=== PATIENT | male | born 1935 | race Caucasian/White ===

== ENCOUNTER 2018-10-31 17:03 | Emergency (ER) | payer MEDICARE, MEDICAID ==
[2018-10-31 17:19] VITALS: BP 145/65
--- NOTE | 2018-10-31 17:45 | EDM.PDOC ---
ED HPI GENERAL MEDICAL PROBLEM - General Chief Complaint: Lower Extremity Injury/Pain Stated Complaint: RIGHT KNEE PAIN Time Seen by Provider: 10/31/18 17:30 Source of Information: Reports: Patient History Limitations: Reports: No Limitations - History of Present Illness INITIAL COMMENTS - FREE TEXT/NARRATIVE: 83-year-old gentleman presents to emergency room with complaints of right knee pain swelling and lateral right hip pain. He was working on the [employer] up and moved some iron when he fell injuring his right knee. Discontinue to have pain swelling difficulty with ambulation over the last 10 days. Complains of pain swelling of the right knee as well as hip pain laterally. He denies groin pain. He has been weightbearing. He has no other complaints currently at this time. He 's not been taking any medication for his pain. Onset Date: 10/22/18 Duration: Day(s):, Chronic Location: Reports: Lower Extremity, Right Quality: Reports: Sharp Severity: Moderate Improves with: Reports: None Worsens with: Reports: None Context: Reports: Trauma (fall) Associated Symptoms: Reports: No Other Symptoms Right Knee Pain Score (Numeric/FACES): 7 - Related Data Allergies Allergy/AdvReac Type Severity Reaction Status Date / Time No Known Allergies Allergy Verified 10/31/18 17:19 Home Meds: Home Meds Fluticasone/Salmeterol [Advair 250-50] 1 puff INH BID 08/17/13 [History] Losartan [Cozaar] 100 mg PO DAILY 08/17/13 [History] atorvaSTATin [Lipitor] 40 mg PO BEDTIME 08/17/13 [History] Acetaminophen 1,000 mg PO Q6H PRN 10/17/15 [History] Diltiazem HCl [Cardizem Cd] 120 mg PO DAILY 05/31/16 [History] Isosorbide Mononitrate [Isosorbide Mononitrate ER] 60 mg PO DAILY 05/31/16 [ History] Metoprolol Tartrate [Lopressor] 50 mg PO BID 05/31/16 [History] Past Medical History HEENT History: Reports: Hard of Hearing, Impaired Vision Cardiovascular History: Reports: Bypass, High Cholesterol, Hypertension, Stents Respiratory History: Reports: SOB Genitourinary History: Reports: Prostate Disorder Musculoskeletal History: Reports: Other (See Below) Other Musculoskeletal History: 2 back surgeries Neurological History: Reports: Vertigo Hematologic History: Reports: None Oncologic (Cancer) History: Reports: Prostate - Past Surgical History Cardiovascular Surgical History: Reports: Carotid Stents, Coronary Artery Bypass GI Surgical History: Reports: Hernia, Inguinal Musculoskeletal Surgical History: Reports: Knee Replacement, Other (See Below) Oncologic Surgical History: Reports: Other (See Below) Social & Family History - Caffeine Use Caffeine Use: Reports: Coffee, Soda, Tea - Living Situation & Occupation Living situation: Reports: Review of Systems - Review of Systems Review Of Systems: ROS reveals no pertinent complaints other than HPI. ED EXAM, GENERAL - Physical Exam Exam: See Below Exam Limited By: No Limitations General Appearance: Alert, WD/WN, No Apparent Distress Throat/Mouth: Normal Voice Head: Atraumatic Neck: Supple Respiratory/Chest: Lungs Clear Cardiovascular: Regular Rate, Rhythm GI/Abdominal: Soft Back Exam: Normal Inspection, Full Range of Motion Extremities: Joint Swelling (Right knee 1+ effusion), Other (Patient has a 1+ effusion in his right knee. He's able to do us straight leg raise with minimal difficulty. I'm able to flex his knee to about 100 with minimal discomfort. Knee is stable to varus valgus stresses up. Right hip exam shows a negative roll sign he has no pain in his groin with gentle hip range of motion. He has some tenderness over the lateral hip there is no warmth no redness no bruising or ecchymosis about the hip. Has a well-healed incision on the left side of his knee consistent with prior total knee arthroplasty is no pitting edema in either of his lower extremities pulses are 1+. Sensation is intact to light touch) Neurological: Alert, Oriented, No Motor/Sensory Deficits Psychiatric: Normal Affect, Normal Mood Skin Exam: Warm, Dry, Intact, Normal Color, No Rash ED TRAUMA EXTREMITY PROCEDURES - Additional/Other Procedure(s) Other (Free Text) Procedure(s): Intra-articular injection right knee Procedure note: -Right knee was prepped with alcohol as injected with 5 mL 1% Xylocaine and left sides skin and joint. 18-gauge needle was used to aspirate synovial fluid from the right knee. Extremities were exchanged knee was injected with 3 mL of 1 % lidocaine and 80 Kenalog without difficulty. Needle was removed and a Band- Aid was placed at the portal. 40 mL of mild bloody tinged synovial fluid was aspirated from the patient's knee without difficulty. Course - Vital Signs Last Recorded V/S: Last Vital Signs Temp 99.3 F 10/31/18 17:13 Pulse 79 10/31/18 17:13 Resp 16 10/31/18 17:13 BP 145/65 H 10/31/18 17:13 Pulse Ox 92 L 10/31/18 17:13 - Orders/Labs/Meds Meds: Medications Discontinued Medications Generic Name Dose Route Start Last Admin Trade Name Carmen PRN Reason Stop Dose Admin Lidocaine HCl 10 ml 10/31/18 18:12 10/31/18 18:19 Xylocaine 1% INJECT 10/31/18 18:13 10 ml ONETIME ONE Administration Lidocaine HCl Confirm 10/31/18 18:17 10/31/18 18:28 Xylocaine 1% Administered 10/31/18 18:18 Not Given Dose 20 ml .ROUTE .STK-MED ONE Triamcinolone Acetonide 80 mg 10/31/18 18:12 10/31/18 18:18 Kenalog-40 INJECT 10/31/18 18:13 80 mg ONETIME ONE Administration - Radiology Interpretation Free Text/Narrative:: X-rays AP bilateral knees standing, bilateral merchant, bilateral lateral knees X-rays AP pelvis and frog leg right hip Departure - Departure Time of Disposition: 18:30 Disposition: Home, Self-Care 01 Condition: Good Clinical Impression: Knee effusion, right Right knee DJD Qualifiers: Osteoarthritis type: primary Qualified Code(s): M17.11 - Unilateral primary osteoarthritis, right knee Contusion of right hip Qualifiers: Encounter type: initial encounter Qualified Code(s): S70.01XA - Contusion of right hip, initial encounter - Discharge Information Instructions: RICE Therapy for Routine Care of Injuries, [id number], Hip Pain , Osteoarthritis, Knee Injection Forms: ED Department Discharge Additional Instructions: 1. Rest, ice, compression, elevation right knee 2. Ibuprofen 800 mg 3 times a day with food 3. May benefit from using a walker or a cane for a few weeks to help unload the right leg. 4. Follow-up with orthopedics if not significantly better in a couple weeks. - Assessment/Plan Assessment:: 1. Right knee DJD with effusion 2. Right hip contusion Plan: 1. Rest, ice, compression, elevation right knee 2. Ibuprofen 800 mg 3 times a day with food 3. May benefit from using a walker or a cane for a few weeks to help unload the right leg. 4. Follow-up with orthopedics if not significantly better in a couple weeks.
[2018-10-31] MEDS ORDERED: Triamcinolone Acetonide 40 MG/ML 10 ML MDV INJECT ONE (18:12)
[2018-10-31] MEDS ORDERED: Lidocaine 1% 10 ML MDV INJECT ONE (18:12)
--- NOTE | 2018-10-31 18:13 | CR ---
[id number] RAD/RAD Pelvis 1V W 2V Right Hip EXAM: 3 VIEWS RIGHT HIP. INDICATION: RIGHT HIP PAIN. COMPARISON: None. DISCUSSION: No fracture, dislocation or other acute osseous abnormality. Vvzp-sy-exyadfdy degenerative changes of the hips bilaterally. Numerous surgical clips within the pelvis. IMPRESSION: 1. NO ACUTE OSSEOUS ABNORMALITIES. MILD TO MODERATE DEGENERATIVE CHANGES OF THE HIPS BILATERALLY. Jules Balderrama DO 10/31/18 1812 Thank you for allowing us to participate in the care of your patient.
[2018-10-31] MEDS ORDERED: Lidocaine 1% 20 ML MDV ONE (18:17)
--- NOTE | 2018-10-31 18:17 | CR ---
[id number] RAD/RAD Knee Alok Stand W Alok Lat EXAM: 4 VIEWS BILATERAL KNEES. INDICATION: RIGHT KNEE PAIN, STATUS POST FALL. COMPARISON: None. DISCUSSION: No fracture, dislocation or other acute osseous abnormality. 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 No evidence of acute hardware failure or loosening. Advanced tricompartmental degenerative changes of the right knee including narrowing of the joint spaces, osteophyte formation and chondrocalcinosis. Trace right knee joint effusion. IMPRESSION: 1. NO ACUTE OSSEOUS ABNORMALITIES. CHRONIC CHANGES ABOVE. Jules Balderrama DO 10/31/18 1816 Thank you for allowing us to participate in the care of your patient.
== END 2018-10-31 18:42 | disposition home or self-care (01) ==
LOC: KA.ED 17:03
DX: S70.01XA Contusion of right hip, initial encounter (principal); M25.461 Effusion, right knee; M17.11 Unilateral primary osteoarthritis, right knee; I10 Essential (primary) hypertension; E78.00 Pure hypercholesterolemia, unspecified; Z79.899 Other long term (current) drug therapy; W19.XXXA Unspecified fall, initial encounter
CPT/HCPCS: 10004; 20610; 73562-50; 99283; 99283-25; J2001; J3301

== ENCOUNTER 2020-01-09 22:01 | Emergency (ER) | payer MEDICARE, MEDICAID ==
--- NOTE | 2020-01-09 22:22 | EDM.PDOC ---
ED HPI GENERAL MEDICAL PROBLEM - General Chief Complaint: General Stated Complaint: laceration to left elbow Time Seen by Provider: 01/09/20 22:22 Source of Information: Reports: Patient History Limitations: Reports: No Limitations - History of Present Illness INITIAL COMMENTS - FREE TEXT/NARRATIVE: Last night during heavy rain, in a hurry to get into his apartment, slipped and struck his elbow on the concrete. Denies any significant pain and realized he had a laceration, covering it with a dressing. Today when changing the dressing a family member informed him that it was a large laceration that needed to have medical attention. Inder said it was doing okay and denied treatment initially. Then his sister evaluated and got her son to drive him to the hospital emergency department to have this repaired. He stated it bled fairly well at the beginning but was able to control it by holding pressure. He cleaned it up appropriately and has kept it covered for the most part since its occurrence roughly 24 hours prior to arrival. He denies any pain, crepitus, or any interference with full flexion and extension of the elbow. Denies anything radiating to the forearm. [place] that it was not necessary to be evaluated, but was convinced, or forced, to come in for treatment. Onset Date: 01/08/20 Onset Time: 22:00 Duration: Hour(s):, Getting Worse Location: Reports: Upper Extremity, Left Quality: Reports: Pressure Severity: Moderate Improves with: Reports: None Worsens with: Reports: Movement Treatments CATTLE BRANDER: Reports: Dressing(s) - Related Data Allergies Allergy/AdvReac Type Severity Reaction Status Date / Time No Known Allergies Allergy Verified 10/31/18 17:19 Home Meds: Home Meds Losartan [Cozaar] 100 mg PO DAILY 08/17/13 [History] atorvaSTATin [Lipitor] 40 mg PO BEDTIME 08/17/13 [History] Isosorbide Mononitrate [Isosorbide Mononitrate ER] 60 mg PO DAILY 05/31/16 [History] Metoprolol Tartrate [Lopressor] 50 mg PO BID 05/31/16 [History] dilTIAZem HCL [Cardizem Cd] 120 mg PO DAILY 05/31/16 [History] Albuterol Sulfate [Proair Respiclick] 2 puff IH Q4HR PRN 11/18/18 [History] Albuterol [Proventil Neb Soln] 2.5 mg INH QID PRN 11/18/18 [History] Fluticasone Propion/Salmeterol [Advair 250-50 Diskus] 1 each IH BID 11/18/18 [History] Nitroglycerin [Nitrostat] 0.4 mg SL ASDIRECTED PRN 11/18/18 [History] Warfarin [Coumadin] 5 mg PO ASDIRECTED 11/18/18 [History] cephALEXin [Cephalexin] 500 mg PO TID 6 Days #18 tablet 01/09/20 [Rx] Past Medical History HEENT History: Reports: Hard of Hearing, Impaired Vision Cardiovascular History: Reports: Bypass, High Cholesterol, Hypertension, Stents Respiratory History: Reports: SOB Genitourinary History: Reports: Prostate Disorder Musculoskeletal History: Reports: Other (See Below) Other Musculoskeletal History: 2 back surgeries Neurological History: Reports: Vertigo Hematologic History: Reports: None Oncologic (Cancer) History: Reports: Prostate - Past Surgical History Cardiovascular Surgical History: Reports: Carotid Stents, Coronary Artery Bypass GI Surgical History: Reports: Hernia, Inguinal Musculoskeletal Surgical History: Reports: Knee Replacement, Other (See Below) Oncologic Surgical History: Reports: Other (See Below) Social & Family History - Family History Family Medical History: Noncontributory - Caffeine Use Caffeine Use: Reports: Coffee, Soda, Tea - Living Situation & Occupation Living situation: Reports: ED ROS GENERAL - Review of Systems Review Of Systems: Comprehensive ROS is negative, except as noted in HPI. ED EXAM, GENERAL - Physical Exam Exam: See Below Free Text/Narrative:: Alert oriented x3 in no acute distress. HEENT is negative discharge or deformity. PERRLA no icterus no injection. Wilsey moist mucous membranes with no erythema. Neck soft supple no lymphadenopathy, full range of motion. Thorax is clear no wheezes no crackles. Cardiac is regular no appreciated murmur. Focused examination to the left upper extremity shows a 5.2 cm laceration over the distal forearm from the lateral condyle running proximally. It is been held in place with dressing, once removed gapes a centimeter at the midline. It appears to be a shearing force type tear/laceration, full-thickness of the skin. Clean in appearance. Distal CMS is intact and he denies any pain to the joint, nor to the skin or muscle motion. ED GENERAL MEDICAL PROCEDURES - Laceration/Wound Repair Left Lateral Proximal Other Lac/wound length in cm: 5.2 Appearance: Irregular Distal NVT: Neuro & Vascular Intact, No Tendon Injury Anesthetic Type: Local Local Anesthesia - Lidocaine (Xylocaine): 2% with EPI Local Anesthetic Volume: 5cc Skin Prep: Providone-Iodine (Betadine) Exploration/Debridement/Repair: Wound Explored, In a Bloodless Field, Minimal Debridement, No Foreign Material Found Closed with: Sutures Suture Size: 4-0 # of Sutures: 8 Suture Type: Nylon, Simple Course - Orders/Labs/Meds Orders: Active Orders 24 hr Category Date Time Status Vaccines to be Administered [RC] PER UNIT ROUTINE Care 01/09/20 23:13 Ordered Diphth,Pertuss(Acell),Tet Vac [Adacel] Med 01/09/20 23:13 Once 0.5 ml IM .ONCE ONE Meds: Medications Discontinued Medications Generic Name Dose Route Start Last Admin Trade Name Freq PRN Reason Stop Dose Admin Bacitracin 1.5 gm 01/09/20 22:29 Bacitracin Oint TOP 01/09/20 22:30 ONETIME ONE Cephalexin 500 mg 01/09/20 22:31 01/09/20 23:08 Keflex PO 01/09/20 22:32 500 mg ONETIME ONE Administration Cephalexin 1,500 mg 01/09/20 23:09 Keflex PO 01/09/20 23:10 ONETIME ONE Lidocaine/Epinephrine 50 ml 01/09/20 22:27 Xylocaine-Mpf 2%-Epi 1:200,000 INFILT 01/09/20 22:28 ONETIME ONE Lidocaine/Epinephrine Confirm 01/09/20 22:32 Xylocaine-Mpf 2%-Epi 1:200,000 Administered 01/09/20 22:33 Dose 20 ml .ROUTE .STK-MED ONE Neomycin/Polymyxin/Bacitracin Confirm 01/09/20 22:33 Triple Antibiotic Oint Administered 01/09/20 22:34 Dose 1 each .ROUTE .STK-MED ONE Departure - Departure Time of Disposition: 23:19 Disposition: Home, Self-Care 01 Condition: Good Clinical Impression: Laceration - Discharge Information *PRESCRIPTION DRUG MONITORING PROGRAM REVIEWED*: Not Applicable *COPY OF PRESCRIPTION DRUG MONITORING REPORT IN PATIENT GRAEME: Not Applicable Prescriptions: cephALEXin [Cephalexin] 500 mg PO TID 6 Days #18 tablet Instructions: Laceration Care, Adult Referrals: Yolanda Leo PA-C [Primary Care Provider] - Forms: ED Department Discharge Additional Instructions: Keep the elbow area clean and dry as possible. Change the dressing daily and if it becomes soiled. You have been given your first dose of Keflex here tonight and provided 3 doses for Saturday you will take 2 capsules 3 times morning afternoon and evening. A prescription has been sent to the [place] pharmacy for you to picking tech Saturday to conclude the 1 week treatment plan. Stitches need to be removed in 10 days as your ability to schedule between the and 18 January at your clinic. Make sure to watch for signs of infection as this laceration is over the elbow joint. The antibiotic we are giving you should prevent any serious infection, but with it being nearly 24 hours from the time of the cut until it was evaluated and sutured since the risk of infection is higher. Timespan delay also increases the time for healing of the sutures as it had started to heal by secondary intent on the and margins. Redness, streaking, or extreme warmth are concerning signs that need to be evaluated in your clinic. Call or return if questions over this weekend. Take all your medications as directed. - Problem List & Annotations (1) Laceration SNOMED Code(s): 330786613 Code(s): ZPN8506 - Status: Acute Priority: High (2) Immunization due SNOMED Code(s): 263367262 Code(s): Z23 - ENCOUNTER FOR IMMUNIZATION Status: Acute Priority: High Onset Date: ~01/09/20 Annotation/Comment:: Tdap - Problem List Review Problem List Initiated/Reviewed/Updated: Yes - My Orders Last 24 Hours: My Active Orders 01/09/20 23:13 Vaccines to be Administered [RC] PER UNIT ROUTINE Diphth,Pertuss(Acell),Tet Vac [Adacel] 0.5 ml IM .ONCE ONE - Assessment/Plan Last 24 Hours: My Active Orders 01/09/20 23:13 Vaccines to be Administered [RC] PER UNIT ROUTINE Diphth,Pertuss(Acell),Tet Vac [Adacel] 0.5 ml IM .ONCE ONE Plan: Keep the elbow area clean and dry as possible. Change the dressing daily and if it becomes soiled. You have been given your first dose of Keflex here tonight and provided 3 doses for Saturday you will take 2 capsules 3 times morning afternoon and evening. A prescription has been sent to the [place] pharmacy for you to picking tech Saturday to conclude the 1 week treatment plan. Stitches need to be removed in 10 days as your ability to schedule between the and 18 January at your clinic. Make sure to watch for signs of infection as this laceration is over the elbow joint. The antibiotic we are giving you should prevent any serious infection, but with it being nearly 24 hours from the time of the cut until it was evaluated and sutured since the risk of infection is higher. Timespan delay also increases the time for healing of the sutures as it had started to heal by secondary intent on the and margins. Redness, streaking, or extreme warmth are concerning signs that need to be evaluated in your clinic. Call or return if questions over this weekend. Take all your medications as directed.
[2020-01-09] MEDS: Lidocaine 2% with EPINEPHrine 1:200,000 20 ML SDV INJECT ONE (22:27)
[2020-01-09] MEDS: Bacitracin/Neomycin/Polymyxin B Oint 28.4 GM Tube TOP ONE (22:33)
[2020-01-09] MEDS: Bacitracin/Neomycin/Polymyxin B Oint 0.9 GM U/D Packet ONE ×2 (23:00→23:40)
[2020-01-09] MEDS: Cephalexin 250 MG Cap PO ONE ×2 (23:08→23:35)
[2020-01-09] MEDS: Diphtheria,Pertussis(Acell),Tetanus Vaccine 0.5 ML SDV IM ONE (23:17)
[2020-01-09] MEDS: Lidocaine 2% with EPINEPHrine 1:200,000 20 ML SDV INFILT ONE (23:40)
[2020-01-09] MEDS: Bacitracin Oint 30 GM Tube TOP ONE (23:41)
[2020-01-09] MEDS: Lidocaine 2% with EPINEPHrine 1:200,000 20 ML SDV ONE (23:44)
[2020-01-10 00:40] VITALS: BP 138/77; PULSE 78
== END 2020-01-09 23:30 | disposition home or self-care (01) ==
LOC: KA.ED 22:01
DX: S51.812A Laceration without foreign body of left forearm, initial encounter (principal); E78.00 Pure hypercholesterolemia, unspecified; I10 Essential (primary) hypertension; Z79.899 Other long term (current) drug therapy; Z79.01 Long term (current) use of anticoagulants; Z23 Encounter for immunization; W01.198A Fall on same level from slipping, tripping and stumbling with subsequent striking against other object, initial encounter
CPT/HCPCS: 12002; 90471; 90715; 99282; 99283; A9270-GY

== ENCOUNTER 2021-08-18 15:03 | Emergency (ER) | payer MEDICARE, MEDICAID ==
[2021-08-18 16:15] LABS: ANION GAP 13.7 mmol/L (5-15)
[2021-08-18 16:57] VITALS: BP 161/87; PULSE 94
== END 2021-08-18 17:30 | disposition home or self-care (01) ==
LOC: KA.ED 15:03
DX: R31.0 Gross hematuria (principal); D68.9 Coagulation defect, unspecified; I48.91 Unspecified atrial fibrillation; E78.00 Pure hypercholesterolemia, unspecified; I10 Essential (primary) hypertension; K21.9 Gastro-esophageal reflux disease without esophagitis; Z79.899 Other long term (current) drug therapy; Z79.01 Long term (current) use of anticoagulants
CPT/HCPCS: 36415; 80053; 81001; 85025; 85610; 99283; 99284

== ENCOUNTER 2021-09-03 21:00 | Emergency (ER) | payer MEDICARE, MEDICAID ==
[2021-09-03] MEDS ORDERED: Sodium Chloride 0.9% 10 ML Syringe FLUSH PRN (21:07)
[2021-09-03 21:39] VITALS: PULSE 82
[2021-09-03 21:58] LABS: ANION GAP 15.3 mmol/L (5-15); CHLORIDE,CL 104 mmol/L (98-107); SODIUM,NA 137 mmol/L (136-145)
[2021-09-03] MEDS: Furosemide 40 MG/4 ML VIAL IVPUSH ONE (22:10)
[2021-09-03 22:21] VITALS: BP 148/72
== END 2021-09-03 22:40 | disposition home or self-care (01) ==
LOC: KA.ED 21:00
DX: I48.91 Unspecified atrial fibrillation (principal); I11.0 Hypertensive heart disease with heart failure; I50.9 Heart failure, unspecified; N28.9 Disorder of kidney and ureter, unspecified; M17.11 Unilateral primary osteoarthritis, right knee; K21.9 Gastro-esophageal reflux disease without esophagitis; E78.00 Pure hypercholesterolemia, unspecified; Z95.1 Presence of aortocoronary bypass graft; Z79.899 Other long term (current) drug therapy; Z79.01 Long term (current) use of anticoagulants
CPT/HCPCS: 36415; 71045; 80053; 83880; 84484; 85025; 85610; 93005; 93010; 96374; 99284; 99285-25; J1940

== ENCOUNTER 2022-11-30 09:14 | Emergency (ER) | payer MEDICARE, MEDICAID ==
[2022-11-30] MEDS ORDERED: Sodium Chloride 0.9% 10 ML Syringe FLUSH PRN (09:16)
[2022-11-30 09:42] LABS: BASOPHILS PERCENT AUTO 0.8 % (0.0-1.0); EOSINOPHILS ABSOLUTE AUTO 0.35 10^3/uL (0.10-0.30); EOSINOPHILS PERCENT AUTO 2.8 % (1.0-3.0); HEMATOCRIT 45.1 % (40.0-52.0); HEMOGLOBIN 14.4 g/dL (13.0-17.0); IMMATURE GRAN ABSOLUTE AUTO 0.04 10^3/uL (0.00-0.50); IMMATURE GRAN PERCENT AUTO 0.3 % (0.0-5.0); LYMPHOCYTES ABSOLUTE AUTO 1.47 10^3/uL (1.00-4.00); LYMPHOCYTES PERCENT AUTO 11.8 % (20.0-40.0); MEAN CORPUSCULAR HEMOGLOBIN 28.2 pg (27.0-31.0); MEAN CORPUSCULAR HGB CONC 31.9 g/dL (32.0-36.0); MEAN CORPUSCULAR VOLUME 88.4 fL (82.0-92.0); MEAN PLATELET VOLUME 10.4 fL (7.4-10.4); MONOCYTES ABSOLUTE AUTO 0.98 10^3/uL (0.10-0.80); MONOCYTES PERCENT AUTO 7.9 % (2.0-8.0); NEUTROPHILS PERCENT AUTO 76.4 % (50.0-70.0); PLATELET COUNT,PLT 539 10^3/uL (150-400); RED CELL DISTRIBUTION WIDTH 17.4 % (11.5-14.5); WHITE BLOOD CELL COUNT,WBC 12.44 10^3/uL (5.00-10.00)
[2022-11-30 09:53] LABS: B-TYPE NATRIURETIC PEPTIDE,BNP 841 pg/mL (0-100)
[2022-11-30 09:55] LABS: ALANINE AMINOTRANSFERASE,ALT 22 U/L (14-63); ALBUMIN 3.56 g/dL (3.40-5.00); ALKALINE PHOSPHATASE 93 U/L (46-116); ANION GAP 10.5 mmol/L (5-15); ASPARTATE AMNIOTRANSFERASE,AST 21 U/L (15-37); BILIRUBIN TOTAL 2.1 mg/dL (0.2-1.0); BLOOD UREA NITROGEN,BUN 41 mg/dL (7-18); CALCIUM 9.1 mg/dL (8.7-10.3); CARBON DIOXIDE,CO2 29.6 mmol/L (21.0-32.0); CHLORIDE,CL 104 mmol/L (98-107); CREATININE 1.41 mg/dL (0.51-1.17); GLUCOSE RANDOM 118 mg/dL (70-140); POTASSIUM,K 4.1 mmol/L (3.5-5.1); SODIUM,NA 140 mmol/L (136-145)
[2022-11-30 09:56] LABS: ESTIMATED GFR 49 mL/min (>=60)
[2022-11-30 15:29] VITALS: BP 135/79; PULSE 76
== END 2022-11-30 10:25 | disposition home or self-care (01) ==
LOC: KA.ED 09:14
DX: I13.0 Hypertensive heart and chronic kidney disease with heart failure and stage 1 through stage 4 chronic kidney disease, or unspecified chronic kidney disease (principal); N18.9 Chronic kidney disease, unspecified; I50.9 Heart failure, unspecified; R91.1 Solitary pulmonary nodule; I48.91 Unspecified atrial fibrillation; K21.9 Gastro-esophageal reflux disease without esophagitis; Z79.01 Long term (current) use of anticoagulants; Z79.899 Other long term (current) drug therapy; Z95.1 Presence of aortocoronary bypass graft
CPT/HCPCS: 36415; 71045; 80053; 83605; 83880; 84484; 85025; 93005; 93010; 99284; 99285

== ENCOUNTER 2022-12-17 18:18 | Emergency (ER) | payer MEDICARE, MEDICAID ==
[2022-12-17] MEDS: Sodium Chloride 0.9% 10 ML Syringe FLUSH PRN ×3 (19:11→20:36)
[2022-12-17 19:15] LABS: BASOPHILS ABSOLUTE AUTO 0.08 10^3/uL (0.00-0.10); BASOPHILS PERCENT AUTO 0.6 % (0.0-1.0); EOSINOPHILS ABSOLUTE AUTO 0.23 10^3/uL (0.10-0.30); EOSINOPHILS PERCENT AUTO 1.7 % (1.0-3.0); HEMOGLOBIN 14.6 g/dL (13.0-17.0); IMMATURE GRAN ABSOLUTE AUTO 0.06 10^3/uL (0.00-0.50); IMMATURE GRAN PERCENT AUTO 0.4 % (0.0-5.0); LYMPHOCYTES ABSOLUTE AUTO 0.87 10^3/uL (1.00-4.00); LYMPHOCYTES PERCENT AUTO 6.4 % (20.0-40.0); MEAN CORPUSCULAR HEMOGLOBIN 28.7 pg (27.0-31.0); MEAN CORPUSCULAR HGB CONC 32.4 g/dL (32.0-36.0); MEAN CORPUSCULAR VOLUME 88.4 fL (82.0-92.0); MEAN PLATELET VOLUME 10.3 fL (7.4-10.4); MONOCYTES ABSOLUTE AUTO 1.31 10^3/uL (0.10-0.80); MONOCYTES PERCENT AUTO 9.6 % (2.0-8.0); NEUTROPHILS ABSOLUTE AUTO 11.05 10^3/uL (2.50-7.00); NEUTROPHILS PERCENT AUTO 81.3 % (50.0-70.0); PLATELET COUNT,PLT 578 10^3/uL (150-400); RED BLOOD CELL COUNT 5.09 10^6/uL (4.50-6.00); RED CELL DISTRIBUTION WIDTH 17.4 % (11.5-14.5)
[2022-12-17 19:27] LABS: APPEARANCE,URINE SLIGHTLY CLOUDY (CLEAR); BILIRUBIN,URINE NEGATIVE (NEGATIVE); COLOR,URINE DARK YELLOW (YELLOW); GLUCOSE,URINE NEGATIVE (NEGATIVE); KETONES,URINE NEGATIVE (NEGATIVE); LEUKOCYTE ESTERASE,URINE NEGATIVE (NEGATIVE); NITRITE,URINE NEGATIVE (NEGATIVE); OCCULT BLOOD,URINE NEGATIVE (NEGATIVE); PROTEIN,URINE 100 mg/dL (NEGATIVE); UROBILINOGEN,URINE 0.2 E.U./dL (0.2-1.0)
[2022-12-17 19:32] LABS: BACTERIA,URINE OCCASIONAL /HPF (NONE TO FEW); EPITHELIAL CELLS,URINE FEW /LPF; RBC,URINE 0-5 /HPF (0-5); WBC,URINE 0-5 /HPF (0-5)
[2022-12-17 19:33] LABS: MUCUS,URINE FEW /LPF (NEGATIVE)
[2022-12-17 19:39] LABS: LACTIC ACID 1.6 mmol/L (0.4-2.0)
[2022-12-17 19:46] LABS: ALBUMIN 3.43 g/dL (3.40-5.00); ANION GAP 18.1 mmol/L (5-15); BILIRUBIN TOTAL 2.5 mg/dL (0.2-1.0); C-REACTIVE PROTEIN 1.4 mg/dL (0.0-0.9); CALCIUM 8.9 mg/dL (8.7-10.3); CARBON DIOXIDE,CO2 23.1 mmol/L (21.0-32.0); CREATININE 1.53 mg/dL (0.51-1.17); EST CRCL DRUG DOSING (CG) 31.85 mL/min; POTASSIUM,K 4.2 mmol/L (3.5-5.1); PROTEIN TOTAL,TP 6.5 g/dL (6.4-8.2)
[2022-12-17] MEDS ORDERED: HYDROmorphone 1 MG/ML Syringe IVPUSH ONE (19:51)
[2022-12-17] MEDS ORDERED: Naloxone 0.4 MG/ML SDV IVPUSH PRN (19:51)
[2022-12-17] MEDS ORDERED: Iopamidol 755 Mg/ML 100 ML Bottle IV ONE (20:11)
[2022-12-17] MEDS ORDERED: Sodium Chloride 0.9% 50 ML IV SCH ×2 (20:15→23:00)
[2022-12-17] MEDS ORDERED: Furosemide 40 MG/4 ML VIAL IVPUSH ONE (20:17)
[2022-12-17 21:30] LABS: PROTHROMBIN TIME 42.8 SEC (9.2-11.2)
[2022-12-17 21:35] LABS: INR 4.6 (0.9-1.1)
[2022-12-17] MEDS ORDERED: Piperacillin/Tazobactam 4.5 GM in Sodium Chloride 0.9% 100 ML IV ONE (22:44)
[2022-12-18] MEDS ORDERED: Furosemide 40 MG/4 ML VIAL IVPUSH ONE ×2 (00:16→10:18)
[2022-12-18] MEDS ORDERED: HYDROmorphone 1 MG/ML Syringe IVPUSH PRN (00:17)
[2022-12-18] MEDS: Sodium Chloride 0.9% 10 ML Syringe FLUSH PRN ×2 (00:31→05:40)
[2022-12-18 08:10] VITALS: BP 140/83; PULSE 108
[2022-12-18 09:01] LABS: BASOPHILS ABSOLUTE AUTO 0.11 10^3/uL (0.00-0.10); BASOPHILS PERCENT AUTO 0.7 % (0.0-1.0); EOSINOPHILS ABSOLUTE AUTO 0.24 10^3/uL (0.10-0.30); EOSINOPHILS PERCENT AUTO 1.5 % (1.0-3.0); HEMATOCRIT 49.1 % (40.0-52.0); HEMOGLOBIN 15.7 g/dL (13.0-17.0); IMMATURE GRAN PERCENT AUTO 0.6 % (0.0-5.0); LYMPHOCYTES ABSOLUTE AUTO 1.12 10^3/uL (1.00-4.00); LYMPHOCYTES PERCENT AUTO 6.8 % (20.0-40.0); MEAN CORPUSCULAR HEMOGLOBIN 28.4 pg (27.0-31.0); MEAN CORPUSCULAR VOLUME 88.9 fL (82.0-92.0); MEAN PLATELET VOLUME 10.3 fL (7.4-10.4); MONOCYTES ABSOLUTE AUTO 1.55 10^3/uL (0.10-0.80); MONOCYTES PERCENT AUTO 9.4 % (2.0-8.0); NEUTROPHILS ABSOLUTE AUTO 13.38 10^3/uL (2.50-7.00); PLATELET COUNT,PLT 651 10^3/uL (150-400); RED BLOOD CELL COUNT 5.52 10^6/uL (4.50-6.00); RED CELL DISTRIBUTION WIDTH 17.7 % (11.5-14.5)
[2022-12-18] MEDS ORDERED: Naloxone 0.4 MG/ML SDV IVPUSH PRN (09:30)
[2022-12-18] MEDS ORDERED: HYDROmorphone 1 MG/ML Syringe IVPUSH ONE (09:30)
[2022-12-18 09:36] LABS: ANION GAP 14.9 mmol/L (5-15); CALCIUM 9.2 mg/dL (8.7-10.3); CARBON DIOXIDE,CO2 29.1 mmol/L (21.0-32.0); CREATININE 1.58 mg/dL (0.51-1.17); EST CRCL DRUG DOSING (CG) 30.85 mL/min
[2022-12-18 09:55] LABS: INR 3.4 (0.9-1.1); PROTHROMBIN TIME 31.9 SEC (9.2-11.2)
== END 2022-12-18 12:15 | disposition hospice, home (50) ==
LOC: KA.ED 18:18
DX: K74.60 Unspecified cirrhosis of liver (principal); R18.8 Other ascites; I13.0 Hypertensive heart and chronic kidney disease with heart failure and stage 1 through stage 4 chronic kidney disease, or unspecified chronic kidney disease; N18.9 Chronic kidney disease, unspecified; I50.9 Heart failure, unspecified; R77.8 Other specified abnormalities of plasma proteins; I48.91 Unspecified atrial fibrillation; E78.00 Pure hypercholesterolemia, unspecified; K21.9 Gastro-esophageal reflux disease without esophagitis; Z95.1 Presence of aortocoronary bypass graft; Z79.899 Other long term (current) drug therapy; Z79.01 Long term (current) use of anticoagulants; Z87.898 Personal history of other specified conditions
CPT/HCPCS: 36415; 51702; 71045; 74177; 80048; 80053; 81001; 82150; 83605; 83690; 83880; 84484; 85025; 85610; 86140; 87040; 93010; 96365; 96375; 96376; 99284-25; 99285; J1170; J1940; J2543; J3490; Q9967